=== PATIENT | female | born 1965 | race Caucasian/White ===

== ENCOUNTER 2020-06-10 13:05 | Outpatient (REF) | payer OTHER, SELFPAY ==
[2020-06-10 15:06] LABS: Anion Gap 11 (12-20); Blood Urea Nitrogen 20 mg/dL (9-16); Calcium 9.6 mg/dL (8.4-10.2); Carbon Dioxide 28 mmol/L (22-29); Chloride 105 mmol/L (96-108); Estimated Glomerular Filt Rate > 60; Glucose Random 90 mg/dL (60-115); Potassium 4.2 mmol/l (3.3-5.1); Sodium 140 mmol/L (135-145)
[2020-06-11 05:07] LABS: Lyme Abs Screen <0.90 index
[2020-06-16 05:11] LABS: Aldolase 4.5 U/L (<=8.1)
== END 2020-06-10 13:06 | disposition home or self-care (01) ==
LOC: HO.LAB 13:05
PROVIDERS: PCP Internal Medicine; Visit Provider Psychiatry & Neurology Neurology
DX: G43.009 Migraine without aura, not intractable, without status migrainosus (principal); G71.00 Muscular dystrophy, unspecified
CPT/HCPCS: 36415; 80048; 82085; 82550; 83520; 86618